=== PATIENT | male | born 1945 | race Caucasian/White ===

== ENCOUNTER 2017-10-09 13:16 | Emergency (ER) | payer OTHER ==
[~2017-10-09] VITALS: Ht 167.6 cm; Wt 79.0 kg
[2017-10-09 13:25] VITALS: BP 139/100
[2017-10-09] MEDS ORDERED: BACTROBAN OINTM22 GM TP (13:29)
== END 2017-10-09 13:54 | disposition home or self-care (01) ==
LOC: EME 13:16
DX: L98.9 Disorder of the skin and subcutaneous tissue, unspecified (principal); L29.9 Pruritus, unspecified
CPT/HCPCS: 99281; 99283